=== PATIENT | male | born 1930 | race Two or more races ===

== ENCOUNTER 2018-01-04 18:37 | Emergency (ER) | payer MEDICARE, OTHER ==
[~2018-01-04] VITALS: Ht 172.7 cm; Wt 68.0 kg
--- NOTE | 2018-01-04 18:48 | NUR ---
Medication reconciliation note: Pt's daughter states " he takes a lot of medications but I don't know any of the names right now ".
--- NOTE | 2018-01-04 18:58 | NUR ---
[facility] REPORT TO PM SHIFT
--- NOTE | 2018-01-04 19:06 | NUR ---
LAB AT PT BEDSIDE FOR BLOOD DRAW.
[2018-01-04] MEDS ORDERED: INDOMETHACIN 25 MG CAPSULE PO ONE (19:15)
[2018-01-04] MEDS ORDERED: HYDROCODONE/APAP 5-325MG TABLET PO ONE (19:15)
[2018-01-04] MEDS ORDERED: ONDANSETRON ODT 4 MG TAB.RAPDIS SL ONE (19:15)
[2018-01-04] MEDS ORDERED: ONDANSETRON ODT 4 MG TAB.RAPDIS ONE (19:22)
[2018-01-04] MEDS ORDERED: HYDROCODONE/APAP 5-325MG TABLET ONE (19:23)
[2018-01-04] MEDS ORDERED: INDOMETHACIN 25 MG CAPSULE ONE (19:23)
--- NOTE | 2018-01-04 19:23 | NUR ---
REPORT TAKEN FROM DAY SHIFT RN. ASSUMING PT CARE AT THIS TIME.
--- NOTE | 2018-01-04 20:04 | NUR ---
Patient discharged to home in stable conditon. Written and verbal after care instructions given. Patient and family verbalize understanding of instructions. Pt ambulated from ER w/ use of cane, accompanied by and daughter. No distress noted. Pt took all personal belongings.
[2018-01-04 20:06] VITALS: BP 116/68
== END 2018-01-04 20:06 | disposition home or self-care (01) ==
LOC: ER 18:39
DX: M19.072 Primary osteoarthritis, left ankle and foot (principal); M79.675 Pain in left toe(s); E78.00 Pure hypercholesterolemia, unspecified
CPT/HCPCS: 36415; 84550; A4663; Q0162

== ENCOUNTER 2018-06-10 11:05 | Emergency (ER) | payer MEDICARE, OTHER ==
[~2018-06-10] VITALS: Ht 175.3 cm; Wt 77.1 kg
--- NOTE | 2018-06-10 11:25 | NUR ---
PATIENT WAS SEEN BY DR STEPHEN. PATIENT IS AMBULATORY.
--- NOTE | 2018-06-10 11:38 | NUR ---
X-RAY IN PROCESS...
[2018-06-10] MEDS ORDERED: NEOMY/BACITRA/POLYMYXIN B OINT UD PACKET TP ONE ×2 (12:07→18:00)
--- NOTE | 2018-06-10 12:10 | NUR ---
DC AND FOLLOW UP INSTRUCTIONS GIVEN AND EXPLAINED TO PATIENT AND FAMILY WHO STATE THEY UNDERSTAND ALL INSTRUCTIONS.
== END 2018-06-10 12:14 | disposition home or self-care (01) ==
LOC: ER 11:07
DX: S20.211A Contusion of right front wall of thorax, initial encounter (principal); M25.511 Pain in right shoulder; S01.111D Laceration without foreign body of right eyelid and periocular area, subsequent encounter; E78.00 Pure hypercholesterolemia, unspecified; Z90.49 Acquired absence of other specified parts of digestive tract; W01.0XXA Fall on same level from slipping, tripping and stumbling without subsequent striking against object, initial encounter; Y93.89 Activity, other specified; Y92.89 Other specified places as the place of occurrence of the external cause; Y99.8 Other external cause status
CPT/HCPCS: 71101; 73030; A4663

== ENCOUNTER 2018-06-13 09:49 | Emergency (ER) | payer MEDICARE, OTHER ==
[~2018-06-13] VITALS: Ht 175.3 cm; Wt 77.1 kg
--- NOTE | 2018-06-13 10:07 | NUR ---
mse completed, dr gregory removed sutures.Patient discharged to home in stable conditon. Written and verbal after care instructions given. Patient verbalizes understanding of instructions.
[2018-06-13 10:11] VITALS: BP 132/71
== END 2018-06-13 10:11 | disposition home or self-care (01) ==
LOC: ER 09:51
DX: S01.111D Laceration without foreign body of right eyelid and periocular area, subsequent encounter (principal); E78.00 Pure hypercholesterolemia, unspecified; Z90.49 Acquired absence of other specified parts of digestive tract; X58.XXXD Exposure to other specified factors, subsequent encounter
CPT/HCPCS: A4663

== ENCOUNTER 2019-03-19 11:07 | Inpatient (IN) | payer MEDICARE, OTHER ==
[~2019-03-19] VITALS: Ht 175.3 cm; Wt 72.6 kg
[2019-03-19] MEDS ORDERED: ESCI5TAB PO (11:15)
[2019-03-19] MEDS ORDERED: MELO-107 PO (11:15)
[2019-03-19] MEDS ORDERED: ATOR40TA PO (11:15)
[2019-03-19] MEDS ORDERED: MEMA1CAP5 PO (11:15)
[2019-03-19 11:53] LABS: BASOPHILS # (AUTO) 0.1 K/uL (0.0-8.0); BASOPHILS % (AUTO) 0.9 % (0.0-2.0); EOSINOPHILS # (AUTO) 0.2 K/uL (0.0-0.7); EOSINOPHILS % (AUTO) 2.3 % (0.0-7.0); HEMATOCRIT 50.7 % (36.7-47.1); HEMOGLOBIN 16.5 g/dL (12.5-16.3); LYMPHOCYTES # (AUTO) 1.3 K/uL (20.0-40.0); LYMPHOCYTES % (AUTO) 18.5 % (20.5-51.5); MEAN CORPUSCULAR HEMOGLOBIN 29.2 uug (23.8-33.4); MEAN CORPUSCULAR HGB CONC 33 g/dL (32.5-36.3); MEAN CORPUSCULAR VOLUME 89.7 fL (73.0-96.2); MONOCYTES # (AUTO) 0.5 K/uL (2.0-10.0); MONOCYTES % (AUTO) 7.4 % (0.0-11.0); NEUTROPHILS % (AUTO) 70.9 % (38.5-71.5); PLATELET COUNT (AUTO) 377 K/uL (152-348); RED BLOOD CELL COUNT(AUTO) 5.65 MIL/uL (4.06-5.63); WHITE BLOOD COUNT (AUTO) 7.1 K/uL (3.6-10.2)
[2019-03-19 12:00] LABS: CARBON DIOXIDE 25 mmol/L (21-32); CHLORIDE 96 mmol/L (98-107); CREATININE 0.8 mg/dL (0.6-1.3); GLUCOSE 125 mg/dL (74-106); POTASSIUM 4.3 mmol/L (3.5-5.1); UREA NITROGEN, BLOOD 19 mg/dL (7-18)
[2019-03-19] MEDS ORDERED: IV NORMAL SALINE 1000 ML BAG IV ONE (12:00)
[2019-03-19 12:17] LABS: ALANINE AMINOTRANSFERASE 32 U/L (16-63); ALKALINE PHOSPHATASE 74 U/L (50-136); ASPARTATE AMINOTRANSFERASE 28 U/L (15-37); BILIRUBIN,DIRECT 0.1 mg/dL (0.0-0.2); BILIRUBIN,TOTAL 0.5 mg/dL (0.2-1.0); TOTAL PROTEIN, SERUM 7.1 g/dL (6.4-8.2)
[2019-03-19 12:38] LABS: THYROID STIMULATING HORMONE 3.664 mIU/mL (0.358-3.740)
[2019-03-19 12:40] LABS: *BILIRUBIN,URIN NEGATIVE (NEGATIVE); *COLOR,URINE YELLOW (YELLOW); *KETONES,URINE NEGATIVE (NEGATIVE); *UROBILINOGEN,URINE 0.2 E.U./dl (NORMAL); LEUKOCYTE ESTERASE ,URINE 2+ (NEGATIVE); NITRITE, URINE NEGATIVE (NEGATIVE); UGLUCOSE NEGATIVE (NEGATIVE)
[2019-03-19 12:52] LABS: *BLOOD, URINE TRACE (NEGATIVE); *CLARITY,URINE SLIGHTLY CLOUDY (CLEAR)
[2019-03-19 13:01] LABS: BACTERIA,URINE FEW /HPF (NONE SEEN); RBC,URINE 0-3 /HPF (0-3); SQUAMOUS EPITHELIAL CELL,UR FEW /HPF (NONE SEEN)
[2019-03-19 13:30] VITALS: BP 111/66
[2019-03-19] MEDS ORDERED: MAGNESIUM HYDROXIDE 30 ML LIQUID UDC PO PRN (13:45)
[2019-03-19] MEDS ORDERED: HYDROCODONE/APAP 5-325MG TABLET PO PRN (13:45)
[2019-03-19] MEDS ORDERED: ZOLPIDEM 5 MG TABLET PO PRN (13:45)
[2019-03-19] MEDS ORDERED: ACETAMINOPHEN 325 MG TABLET PO PRN (13:45)
[2019-03-19] MEDS ORDERED: ONDANSETRON 4 MG/2 ML VIAL IV PRN (13:45)
[2019-03-19] MEDS ORDERED: MORPHINE SULFATE 2 MG/1 ML DISP.SYRIN IV PRN (13:45)
[2019-03-19] MEDS: IV NS 1000 ML 1,000 ML IV PRN (14:00)
[2019-03-19 15:54] VITALS: BP 105/61
[2019-03-19] MEDS: CEFTRIAXONE 1 G in IV DEXTROSE 5% 50 ML IV SCH (15:55)
[2019-03-19] MEDS: ENOXAPARIN SODIUM 40 MG/0.4 ML DISP.SYRIN SQ SCH (15:58)
[2019-03-19 20:00] VITALS: BP 103/55
[2019-03-19] MEDS: MEMANTINE HCL 10 MG TABLET PO SCH (20:45)
[2019-03-19] MEDS: ATORVASTATIN 40 MG TABLET PO SCH (20:46)
[2019-03-20] VITALS: BP 94/50
[2019-03-20] MEDS: IV NS 1000 ML 1,000 ML IV PRN ×2 (02:08→17:00)
[2019-03-20 04:00] VITALS: BP 111/51
[2019-03-20] MEDS: PANTOPRAZOLE SODIUM 40 MG TABLET.DR PO SCH (06:24)
[2019-03-20 07:14] LABS: IRON, SERUM 37 ug/dL (50-175)
[2019-03-20 07:16] LABS: BASOPHILS # (AUTO) 0.1 K/uL (0.0-8.0); BASOPHILS % (AUTO) 0.9 % (0.0-2.0); EOSINOPHILS # (AUTO) 0.2 K/uL (0.0-0.7); EOSINOPHILS % (AUTO) 3.6 % (0.0-7.0); HEMATOCRIT 47.1 % (36.7-47.1); HEMOGLOBIN 15.3 g/dL (12.5-16.3); LYMPHOCYTES # (AUTO) 1.2 K/uL (20.0-40.0); LYMPHOCYTES % (AUTO) 20.8 % (20.5-51.5); MEAN CORPUSCULAR HEMOGLOBIN 29.2 uug (23.8-33.4); MEAN CORPUSCULAR HGB CONC 33 g/dL (32.5-36.3); MEAN CORPUSCULAR VOLUME 89.8 fL (73.0-96.2); MONOCYTES # (AUTO) 0.4 K/uL (2.0-10.0); MONOCYTES % (AUTO) 6.9 % (0.0-11.0); NEUTROPHILS # (AUTO) 4.1 K/uL (1.8-8.9); NEUTROPHILS % (AUTO) 67.8 % (38.5-71.5); PLATELET COUNT (AUTO) 330 K/uL (152-348); RED BLOOD CELL COUNT(AUTO) 5.24 MIL/uL (4.06-5.63)
[2019-03-20 07:17] LABS: THYROID STIMULATING HORMONE 2.424 mIU/mL (0.358-3.740)
[2019-03-20 07:21] LABS: ALANINE AMINOTRANSFERASE 30 U/L (16-63); ALKALINE PHOSPHATASE 55 U/L (50-136); ASPARTATE AMINOTRANSFERASE 30 U/L (15-37); BILIRUBIN,TOTAL 0.4 mg/dL (0.2-1.0); CARBON DIOXIDE 24 mmol/L (21-32); CHLORIDE 100 mmol/L (98-107); CHOLESTEROL 82 mg/dL (<200); CREATININE 0.7 mg/dL (0.6-1.3); GLUCOSE 94 mg/dL (74-106); HDL CHOLESTEROL 33 mg/dL (40-60); MAGNESIUM 1.7 mg/dL (1.8-2.4); PHOSPHOROUS 3.2 mg/dL (2.5-4.9); TOTAL PROTEIN, SERUM 5.7 g/dL (6.4-8.2); TRIGLYCERIDES 56 MG/DL (30-150); UREA NITROGEN, BLOOD 13 mg/dL (7-18)
[2019-03-20] MEDS ORDERED: MEMANTINE HCL PO SCH (09:00)
[2019-03-20] MEDS ORDERED: DONEPEZIL HCL PO SCH (09:00)
[2019-03-20] MEDS ORDERED: Medication Not On Formulary EA (Escitalopram Oxalate (Lexapro) 5 MG) PO SCH (09:00)
[2019-03-20] MEDS ORDERED: [UNRECOGNIZED DRUG - OTHER] PO SCH (09:00)
[2019-03-20 10:22] VITALS: BP 96/50
[2019-03-20] MEDS: DONEPEZIL 10 MG TABLET PO SCH (10:37)
[2019-03-20] MEDS: ESCITALOPRAM OXALATE 10 MG TABLET PO SCH (10:37)
[2019-03-20] MEDS: MEMANTINE HCL 10 MG TABLET PO SCH ×2 (10:37→20:27)
[2019-03-20 11:35] VITALS: BP 98/48
[2019-03-20] MEDS: ENOXAPARIN SODIUM 40 MG/0.4 ML DISP.SYRIN SQ SCH (12:54)
[2019-03-20] MEDS: CEFTRIAXONE 1 G in IV DEXTROSE 5% 50 ML IV SCH (15:06)
[2019-03-20 15:42] VITALS: BP 112/69
[2019-03-20] MEDS ORDERED: MAGNESIUM SULFATE/D5W 100 ML IV SCH (16:45)
[2019-03-20] MEDS ORDERED: MAGNESIUM OXIDE 400 MG TABLET PO ONE (17:00)
[2019-03-20 20:23] VITALS: BP 105/56
[2019-03-20] MEDS: ATORVASTATIN 40 MG TABLET PO SCH (20:27)
[2019-03-21 00:28] VITALS: BP 126/73
[2019-03-21 05:46] VITALS: BP 114/71
[2019-03-21] MEDS: IV NS 1000 ML 1,000 ML IV PRN ×2 (06:19→20:01)
[2019-03-21] MEDS: PANTOPRAZOLE SODIUM 40 MG TABLET.DR PO SCH (06:19)
[2019-03-21 07:37] LABS: BASOPHILS # (AUTO) 0.1 K/uL (0.0-8.0); BASOPHILS % (AUTO) 1.1 % (0.0-2.0); EOSINOPHILS # (AUTO) 0.2 K/uL (0.0-0.7); EOSINOPHILS % (AUTO) 2.5 % (0.0-7.0); HEMATOCRIT 43.8 % (36.7-47.1); HEMOGLOBIN 14.5 g/dL (12.5-16.3); LYMPHOCYTES # (AUTO) 1.3 K/uL (20.0-40.0); LYMPHOCYTES % (AUTO) 18.5 % (20.5-51.5); MEAN CORPUSCULAR HEMOGLOBIN 29.1 uug (23.8-33.4); MEAN CORPUSCULAR HGB CONC 33 g/dL (32.5-36.3); MEAN CORPUSCULAR VOLUME 87.9 fL (73.0-96.2); MONOCYTES # (AUTO) 0.5 K/uL (2.0-10.0); MONOCYTES % (AUTO) 6.7 % (0.0-11.0); NEUTROPHILS # (AUTO) 5.2 K/uL (1.8-8.9); NEUTROPHILS % (AUTO) 71.2 % (38.5-71.5); PLATELET COUNT (AUTO) 392 K/uL (152-348); RED BLOOD CELL COUNT(AUTO) 4.99 MIL/uL (4.06-5.63); WHITE BLOOD COUNT (AUTO) 7.3 K/uL (3.6-10.2)
[2019-03-21 07:50] LABS: CARBON DIOXIDE 27 mmol/L (21-32); CHLORIDE 105 mmol/L (98-107); CREATININE 0.7 mg/dL (0.6-1.3); GLUCOSE 94 mg/dL (74-106); MAGNESIUM 1.6 mg/dL (1.8-2.4); UREA NITROGEN, BLOOD 8 mg/dL (7-18)
[2019-03-21] MEDS: PROTEIN SUPPLEMENT (PROSTAT) 30 ML LIQUID PO SCH ×3 (08:06→16:08)
[2019-03-21] MEDS: ESCITALOPRAM OXALATE 10 MG TABLET PO SCH (08:06)
[2019-03-21] MEDS: DONEPEZIL 10 MG TABLET PO SCH (08:06)
[2019-03-21] MEDS: MEMANTINE HCL 10 MG TABLET PO SCH ×2 (08:06→20:01)
[2019-03-21] MEDS: MAGNESIUM SULFATE/D5W 100 ML IV SCH ×2 (10:56→11:17)
[2019-03-21 12:07] VITALS: BP 105/66
[2019-03-21] MEDS: ENOXAPARIN SODIUM 40 MG/0.4 ML DISP.SYRIN SQ SCH (12:49)
[2019-03-21] MEDS: CEFTRIAXONE 1 G in IV DEXTROSE 5% 50 ML IV SCH (13:36)
[2019-03-21 16:45] VITALS: BP 114/70
[2019-03-21] MEDS: ATORVASTATIN 40 MG TABLET PO SCH (20:01)
[2019-03-21 20:37] VITALS: BP 119/76
[2019-03-22 04:47] VITALS: BP 107/60
[2019-03-22] MEDS: IV NS 1000 ML 1,000 ML IV PRN ×2 (05:27→18:09)
[2019-03-22] MEDS: PANTOPRAZOLE SODIUM 40 MG TABLET.DR PO SCH (06:02)
[2019-03-22] MEDS: PROTEIN SUPPLEMENT (PROSTAT) 30 ML LIQUID PO SCH ×3 (08:00→16:03)
[2019-03-22] MEDS: DONEPEZIL 10 MG TABLET PO SCH (08:21)
[2019-03-22] MEDS: ESCITALOPRAM OXALATE 10 MG TABLET PO SCH (08:21)
[2019-03-22] MEDS: MEMANTINE HCL 10 MG TABLET PO SCH ×2 (08:21→20:49)
[2019-03-22 11:50] VITALS: BP 106/58
[2019-03-22] MEDS: ENOXAPARIN SODIUM 40 MG/0.4 ML DISP.SYRIN SQ SCH (13:08)
[2019-03-22] MEDS: CEFTRIAXONE 1 G in IV DEXTROSE 5% 50 ML IV SCH (14:06)
[2019-03-22 15:51] VITALS: BP 105/57
[2019-03-22] MEDS: DRONABINOL 2.5 MG CAPSULE PO SCH (16:03)
[2019-03-22 20:28] VITALS: BP 115/62
[2019-03-22] MEDS: ATORVASTATIN 40 MG TABLET PO SCH (20:49)
[2019-03-23 01:07] VITALS: BP 121/66
[2019-03-23 05:16] VITALS: BP 110/62
[2019-03-23] MEDS: PANTOPRAZOLE SODIUM 40 MG TABLET.DR PO SCH (05:26)
[2019-03-23] MEDS: IV NS 1000 ML 1,000 ML IV PRN (06:34)
[2019-03-23] MEDS: MEMANTINE HCL 10 MG TABLET PO SCH (09:24)
[2019-03-23] MEDS: DRONABINOL 2.5 MG CAPSULE PO SCH ×2 (09:24→16:57)
[2019-03-23] MEDS: PROTEIN SUPPLEMENT (PROSTAT) 30 ML LIQUID PO SCH ×3 (09:25→16:57)
[2019-03-23] MEDS: DONEPEZIL 10 MG TABLET PO SCH (09:25)
[2019-03-23] MEDS: ESCITALOPRAM OXALATE 10 MG TABLET PO SCH (09:25)
[2019-03-23 11:37] VITALS: BP 99/54
[2019-03-23] MEDS: ENOXAPARIN SODIUM 40 MG/0.4 ML DISP.SYRIN SQ SCH (15:03)
[2019-03-23] MEDS: CEFTRIAXONE 1 G in IV DEXTROSE 5% 50 ML IV SCH (15:03)
[2019-03-23 15:42] VITALS: BP 107/59
[2019-03-23] MEDS ORDERED: ACET325T53 PO (17:14)
[2019-03-23] MEDS ORDERED: PANT40TA2 PO (17:14)
[2019-03-23] MEDS ORDERED: DRON2.5C11 PO (17:14)
[2019-03-23] MEDS ORDERED: CEFT1VIA15 IV (17:14)
[2019-03-23] MEDS ORDERED: ATOR10TA PO (17:14)
[2019-03-23] MEDS ORDERED: PROT30LI PO (17:14)
== END 2019-03-23 18:30 | DRG 871 ==
LOC: ER 11:07 → TELE3 12:59 → MEDSURG3 03-23 11:55
PROVIDERS: ADMIT Nurse Practitioner Acute Care; ATTEND Nurse Practitioner Acute Care
DX: A41.9 Sepsis, unspecified organism (principal); G92 Toxic encephalopathy; E43 Unspecified severe protein-calorie malnutrition; N39.0 Urinary tract infection, site not specified; E22.2 Syndrome of inappropriate secretion of antidiuretic hormone; I50.32 Chronic diastolic (congestive) heart failure; D68.59 Other primary thrombophilia; R62.7 Adult failure to thrive; E86.0 Dehydration; G30.9 Alzheimer's disease, unspecified; F02.80 Dementia in other diseases classified elsewhere, unspecified severity, without behavioral disturbance, psychotic disturbance, mood disturbance, and anxiety; Z68.23 Body mass index [BMI] 23.0-23.9, adult; T43.225A Adverse effect of selective serotonin reuptake inhibitors, initial encounter; Y92.019 Unspecified place in single-family (private) house as the place of occurrence of the external cause; R73.03 Prediabetes; Z90.79 Acquired absence of other genital organ(s); Z85.46 Personal history of malignant neoplasm of prostate; E78.5 Hyperlipidemia, unspecified; Z79.899 Other long term (current) drug therapy; M51.9 Unspecified thoracic, thoracolumbar and lumbosacral intervertebral disc disorder; M19.90 Unspecified osteoarthritis, unspecified site; G89.29 Other chronic pain; F41.9 Anxiety disorder, unspecified; F32.9 Major depressive disorder, single episode, unspecified; I77.810 Thoracic aortic ectasia; Z74.09 Other reduced mobility; M62.84 Sarcopenia; E78.00 Pure hypercholesterolemia, unspecified; Z90.6 Acquired absence of other parts of urinary tract
CPT/HCPCS: 36415; 70030-TC; 70450; 71045; 83550; 83605; 83735; 84100; 84443; 85025; 85730; 87086; 93005; 93307; A4663; G0378; J0696; J1650; J3475; J7030; J7060; Q0167